=== PATIENT | male | born 1985 | race American Indian/Alaskan Native ===

== ENCOUNTER 2017-12-11 20:37 | Emergency (ER) | payer MEDICAID ==
[2017-12-11 21:23] LABS: Eosinophils # (Auto) 0.1 K/mm3 (0.0-0.4); Eosinophils % (Auto) 1.3 % (0.0-4.3); Hematocrit 41.6 % (35.5-45.6); Hemoglobin 14.1 gm/dl (11.8-15.2); Mean Corpuscular HGB Conc 34 % (32-34); Mean Corpuscular Hemoglobin 34 pg (28-32); Mean Corpuscular Volume 100 fl (84-94); Monocytes # (Auto) 0.6 K/mm3 (0.0-0.8); Monocytes % (Auto) 14.2 % (0.0-7.3); Platelet Count 301 K/mm3 (140-440); Red Blood Count 4.17 M/mm3 (3.65-5.03); Red Cell Distribution Width 12.8 % (13.2-15.2)
[2017-12-11 21:45] LABS: BUN/Creatinine Ratio 4; Blood Urea Nitrogen 4 mg/dL (9-20); Calcium 8.7 mg/dL (8.4-10.2); Hemolysis Index 8
[2017-12-12] MEDS ORDERED: ATIVAN IM PRN (00:39)
[2017-12-12] MEDS ORDERED: HALDOL IM PRN (00:39)
--- NOTE | 2017-12-12 00:40 | Emergency Department Report ---
ED General Adult HPI - General Chief complaint: Psych Stated complaint: SUICIDAL Time Seen by Provider: 12/12/17 00:21 Source: patient, family Mode of arrival: Ambulatory Limitations: Other (alcohol intoxication) - History of Present Illness Initial comments: This is a 32-year-old male whom I have evaluated the past. He has a past medical history of alcoholism and alcohol abuse. He is brought to the hospital in conjunction with his mother for evaluation of alcohol intoxication suicidality and request for detox. Patient's mother indicates the patient has been suicidal. The patient states he is not suicidal. Patient's mother indicates no access to guns or firearms. The patient cannot describe exacerbating or relieving factors. The patient can't describe exacerbating or relieving factors. Patient's mother indicates no trauma or coingestions. He was recently at an outpatient facility for detox and relapsed today. -: Gradual Consistency: constant Improves with: none Worsens with: none Associated Symptoms: other. denies: confusion, chest pain, cough, diaphoresis, fever/chills, headaches, loss of appetite, malaise, nausea/vomiting, rash, seizure, shortness of breath, syncope, weakness - Related Data Previous Rx's Medication Instructions Recorded Last Taken Type Hydrochlorothiazide [Hctz] 12.5 mg PO QDAY #30 capsule 08/13/15 Unknown Rx Ibuprofen [Motrin] 600 mg PO Q8H PRN #30 tablet 08/13/15 Unknown Rx amLODIPine [Norvasc] 5 mg PO DAILY #30 tab 08/13/15 Unknown Rx traMADol [Ultram 50 MG tab] 50 mg PO Q6HR PRN #20 tablet 08/13/15 Unknown Rx Allergies Allergy/AdvReac Type Severity Reaction Status Date / Time No Known Allergies Allergy Verified 04/10/14 16:28 ED Review of Systems ROS: Stated complaint: SUICIDAL Other details as noted in HPI Psychiatric: suicidal thoughts ED Past Medical Hx - Past Medical History Previous Medical History?: Yes Hx Hypertension: Yes Hx Psychiatric Treatment: Yes Additional medical history: daily beer/liquor drinker - Surgical History Past Surgical History?: No - Social History Smoking Status: Never Smoker Substance Use Type: Alcohol - Medications Home Medications: Home Medications Medication Instructions Recorded Confirmed Last Taken Type Hydrochlorothiazide [Hctz] 12.5 mg PO QDAY #30 capsule 08/13/15 Unknown Rx Ibuprofen [Motrin] 600 mg PO Q8H PRN #30 tablet 08/13/15 Unknown Rx amLODIPine [Norvasc] 5 mg PO DAILY #30 tab 08/13/15 Unknown Rx traMADol [Ultram 50 MG tab] 50 mg PO Q6HR PRN #20 tablet 08/13/15 Unknown Rx ED Physical Exam - General Limitations: No Limitations, Other (patient is intoxicated) General appearance: appears intoxicated - Head Head exam: Present: atraumatic, normocephalic - Eye Eye exam: Present: normal appearance, EOMI. Absent: nystagmus - ENT ENT exam: Present: normal exam, normal orophraynx, mucous membranes moist, normal external ear exam - Neck Neck exam: Present: normal inspection, full ROM - Respiratory Respiratory exam: Present: normal lung sounds bilaterally. Absent: respiratory distress - Cardiovascular Cardiovascular Exam: Present: regular rate, normal rhythm, normal heart sounds. Absent: bradycardia, tachycardia, irregular rhythm, systolic murmur, diastolic murmur, rubs, gallop - GI/Abdominal GI/Abdominal exam: Present: soft, normal bowel sounds. Absent: distended, tenderness, guarding, rebound, rigid - Rectal Rectal exam: Present: deferred - Extremities Exam Extremities exam: Present: normal inspection, full ROM - Back Exam Back exam: Present: normal inspection, full ROM. Absent: tenderness, CVA tenderness (R), paraspinal tenderness, vertebral tenderness - Neurological Exam Neurological exam: Present: alert, CN II-XII intact, normal gait, other ( Extraocular movements intact. Tongue midline. No facial droop. Facial sensation intact to light touch in the V1, V2, V3 distribution bilaterally. 5 and 5 strength in 4 extremities.. Sensation is intact to light touch in 4 extremities.). Absent: motor sensory deficit - Psychiatric Psychiatric exam: Present: agitated. Absent: homicidal ideation - Skin Skin exam: Present: warm, dry, intact, normal color. Absent: rash ED Course Vital Signs 12/11/17 21:04 Temperature 98.1 F Pulse Rate 86 Respiratory 16 Rate Blood Pressure 105/57 O2 Sat by Pulse 96 Oximetry ED Medical Decision Making - Lab Data Result diagrams: 12/11/17 21:12 12/11/17 21:12 Vital Signs 12/11/17 21:04 Temperature 98.1 F Pulse Rate 86 Respiratory 16 Rate Blood Pressure 105/57 O2 Sat by Pulse 96 Oximetry Lab Results 12/11/17 12/11/17 12/11/17 Range/Units 21:12 21:12 21:12 WBC (4.5-11.0) K/mm3 RBC (3.65-5.03) M/mm3 Hgb (11.8-15.2) gm/dl Hct (35.5-45.6) % MCV (84-94) fl MCH (28-32) pg MCHC (32-34) % RDW (13.2-15.2) % Plt Count (140-440) K/mm3 Lymph % (Auto) (13.4-35.0) % [place] % (Auto) (0.0-7.3) % Eos % (Auto) (0.0-4.3) % Baso % (Auto) (0.0-1.8) % Lymph # (1.2-5.4) K/mm3 [place] # (0.0-0.8) K/mm3 Eos # (0.0-0.4) K/mm3 Baso # (0.0-0.1) K/mm3 Seg Neutrophils % (40.0-70.0) % Seg Neutrophils # (1.8-7.7) K/mm3 Sodium 144 (137-145) mmol/L Potassium 4.2 (3.6-5.0) mmol/L Chloride 105.2 (98-107) mmol/L Carbon Dioxide 29 (22-30) mmol/L Anion Gap 14 mmol/L BUN 4 L (9-20) mg/dL Creatinine 0.9 (0.8-1.5) mg/dL Estimated GFR > 60 ml/min BUN/Creatinine Ratio 4 % Glucose 95 (75-100) mg/dL Calcium 8.7 (8.4-10.2) mg/dL Salicylates < 0.3 L (2.8-20.0) mg/dL Acetaminophen < 5.0 L (10.0-30.0) ug/mL Plasma/Serum Alcohol (0-0.07) % 12/11/17 12/11/17 Range/Units 21:12 21:12 WBC 4.3 L (4.5-11.0) K/mm3 RBC 4.17 (3.65-5.03) M/mm3 Hgb 14.1 (11.8-15.2) gm/dl Hct 41.6 (35.5-45.6) % MCV 100 H (84-94) fl MCH 34 H (28-32) pg MCHC 34 (32-34) % RDW 12.8 L (13.2-15.2) % Plt Count 301 (140-440) K/mm3 Lymph % (Auto) 47.0 H (13.4-35.0) % [place] % (Auto) 14.2 H (0.0-7.3) % Eos % (Auto) 1.3 (0.0-4.3) % Baso % (Auto) 1.0 (0.0-1.8) % Lymph # 2.0 (1.2-5.4) K/mm3 [place] # 0.6 (0.0-0.8) K/mm3 Eos # 0.1 (0.0-0.4) K/mm3 Baso # 0.0 (0.0-0.1) K/mm3 Seg Neutrophils % 36.5 L (40.0-70.0) % Seg Neutrophils # 1.6 L (1.8-7.7) K/mm3 Sodium (137-145) mmol/L Potassium (3.6-5.0) mmol/L Chloride (98-107) mmol/L Carbon Dioxide (22-30) mmol/L Anion Gap mmol/L BUN (9-20) mg/dL Creatinine (0.8-1.5) mg/dL Estimated GFR ml/min BUN/Creatinine Ratio % Glucose (75-100) mg/dL Calcium (8.4-10.2) mg/dL Salicylates (2.8-20.0) mg/dL Acetaminophen (10.0-30.0) ug/mL Plasma/Serum Alcohol 0.43 H (0-0.07) % - Medical Decision Making Differential diagnosis, including but not limited to: Alcohol intoxication, mood disorder, suicidality, medical clearance for psychiatric placement Assessment and plan: 32-year-old male with alcohol intoxication and resolved suicidality. He is afebrile with reassuring vital signs and an unremarkable physical examination. He is placed on a 1013 given his report of suicidality, his mother being concerns that he represents a danger to himself, and his clear inability to care for himself at this point in time. There is no history of trauma. The patient may have his 1013 rescinded if he becomes sober, and indicates that he is not homicidal or suicidal. At this point in time, there does not appear to be an immediate medical contraindication to psychiatric admission, evaluation and consultation. Critical care attestation.: If time is entered above; I have spent that time in minutes in the direct care of this critically ill patient, excluding procedure time. ED Disposition Clinical Impression: Medical clearance for psychiatric admission, Alcohol intoxication Disposition: DC/TX-65 PSY HOSP/PSY UNIT Is pt being admited?: No Does the pt Need Aspirin: No Condition: Stable Referrals: [facility] ROGERS [Other] - 3-5 Days
[2017-12-12 02:19] LABS: Bilirubin,Urine NEG (Negative); Blood,Urine NEG (Negative); Color,Urine Straw (Yellow); Mucus,Urine FEW /HPF; Protein,Urine <15 mg/dL mg/dL (Negative); Urobilinogen,Urine < 2.0 mg/dL (<2.0); WBC,Urine < 1.0 /HPF (0.0-6.0)
[2017-12-12 02:54] LABS: Amphetamine Screen,Urine PRESUMPTIVE NEGATIVE; Benzodiazepines Screen,Urine PRESUMPTIVE NEGATIVE; Cannabinoid Screen,Urine PRESUMPTIVE NEGATIVE; Cocaine Screen,Urine PRESUMPTIVE NEGATIVE; Methadone Screen,Urine PRESUMPTIVE NEGATIVE; Opiate Screen,Urine PRESUMPTIVE NEGATIVE
--- NOTE | 2017-12-12 13:55 | Consultation ---
History of Present Illness - Reason for Consult Consult date: 12/12/17 Reason for consult: Mental Health Evaluation Requesting physician: EMMA HALL - Chief Complaint Chief complaint: "Everything came to a head' - History of Present Psychiatric Illness 32 y.o. AA male presenting to [facility] for alcohol abuse and SI's. Today the patient is anxious, but cooperative during the assessment. He stated having life stressors (relationship and family issues) for a few months. He stated drinking alcohol since he was 13 yrs old because he enjoys it. He stated he completed a 7 day detox program for alcohol at [facility] on Friday of this week. He stated that he found out that his girlfriend was "cheating" and his family "do not do right by him." He stated that his family put him in a bad "head space." He stated that he was overwhelmed since his release from [facility], so he decided to get "drunk." He stated that he was feeling "down" before he started drinking. Per the ER note, the patient's mother stated that he was suicidal on admission. He stated that he would like to return to [facility] if possible. He denies SI/HI's and AVH's. He denies erratic sleep and a poor appetite. He denies any manic episodes in the past. He denies recreational drug use. Medications and Allergies Allergies Allergy/AdvReac Type Severity Reaction Status Date / Time No Known Allergies Allergy Verified 04/10/14 16:28 Home Medications Medication Instructions Recorded Confirmed Last Taken Type Hydrochlorothiazide [Hctz] 12.5 mg PO QDAY #30 capsule 08/13/15 Unknown Rx Ibuprofen [Motrin] 600 mg PO Q8H PRN #30 tablet 08/13/15 Unknown Rx amLODIPine [Norvasc] 5 mg PO DAILY #30 tab 08/13/15 Unknown Rx traMADol [Ultram 50 MG tab] 50 mg PO Q6HR PRN #20 tablet 08/13/15 Unknown Rx Active Meds: Active Medications Haloperidol Lactate (Haldol) 5 mg IM Q6HR PRN PRN Reason: Agitation Lorazepam (Ativan) 2 mg IM Q4HR PRN PRN Reason: Agitation Past psychiatric history - Past Medical History Past Medical History: No medical history Past Surgical History: No surgical history - past Psychiatric treatment and history psychiatric treatment history: Hx of alcohol abuse. Denies a fam psy hx. Mental Status Exam - Vital signs Last Vital Signs Temp 97.9 F 12/12/17 11:16 Pulse 100 H 12/12/17 11:16 Resp 18 12/12/17 11:16 BP 107/78 12/12/17 11:16 Pulse Ox 98 12/12/17 00:39 - Exam Narrative exam: MSE: Appearance: cooperative Behavior: regular eye contact Speech: regular rate and tone Mood: anxious Affect: congruent to mood Thought Process: circumstantial Thought Content: denies SI/HI's and AVH's Motor Activity: sitting up in bed Cognition: A/O x3 Insight: fair Judgment: variable Results Result Diagrams: 12/11/17 21:12 12/11/17 21:12 Abnormal lab results 12/11/17 12/11/17 12/11/17 Range/Units 21:12 21:12 21:12 WBC (4.5-11.0) K/mm3 MCV (84-94) fl MCH (28-32) pg RDW (13.2-15.2) % Lymph % (Auto) (13.4-35.0) % [place] % (Auto) (0.0-7.3) % Seg Neutrophils % (40.0-70.0) % Seg Neutrophils # (1.8-7.7) K/mm3 BUN 4 L (9-20) mg/dL Salicylates < 0.3 L (2.8-20.0) mg/dL Acetaminophen < 5.0 L (10.0-30.0) ug/mL Plasma/Serum Alcohol (0-0.07) % 12/11/17 12/11/17 12/12/17 Range/Units 21:12 21:12 09:07 WBC 4.3 L (4.5-11.0) K/mm3 MCV 100 H (84-94) fl MCH 34 H (28-32) pg RDW 12.8 L (13.2-15.2) % Lymph % (Auto) 47.0 H (13.4-35.0) % [place] % (Auto) 14.2 H (0.0-7.3) % Seg Neutrophils % 36.5 L (40.0-70.0) % Seg Neutrophils # 1.6 L (1.8-7.7) K/mm3 BUN (9-20) mg/dL Salicylates (2.8-20.0) mg/dL Acetaminophen (10.0-30.0) ug/mL Plasma/Serum Alcohol 0.43 H 0.27 H (0-0.07) % All other labs normal. Assessment and Plan Assessment and plan: Impression: MDD, Single Episode. Alcohol Use DO. Alcohol Intoxication. Today the patient is anxious, but cooperative during the assessment. No withdrawals noted (etoh) DDx: R/O Bipolar DO, R/O Alcohol Induced Mood DO Recommendation/Plan: Continue 1013 and gather collateral to determine proper dispo. Start Zoloft 50 mg PO daily for depression. Discussed possible suicidality/medication induced shayne with patient reference Zoloft. If withdrawals (etoh) become present, initiate CIWA.
[2017-12-12] MEDS ORDERED: ZOLOFT PO SCH (15:00)
[2017-12-12] MEDS ORDERED: LIBRIUM PO PRN (16:39)
[2017-12-12] MEDS ORDERED: ATIVAN IV PRN (16:39)
[2017-12-12 21:55] VITALS: BP 138/93
== END 2017-12-12 21:55 ==
LOC: ED 20:37 → EEVIPCON 20:37 → ED 12-12 21:55
DX: F10.120 Alcohol abuse with intoxication, uncomplicated (principal); I10 Essential (primary) hypertension
CPT/HCPCS: 36415; 80048; 80307; 81001; 85025; 99284; G0480; 80320

== ENCOUNTER 2019-07-21 13:09 | Emergency (ER) | payer SELFPAY ==
--- NOTE | 2019-07-21 13:16 | Emergency Department Report ---
Blank Doc - Documentation Documentation: 33-year-old male that presents with medical clearance for ETOH abuse. Denies any SI/HI. This initial assessment/diagnostic orders/clinical plan/treatment(s) is/are subject to change based on patient's health status, clinical progression and re- assessment by fellow clinical providers in the ED. Further treatment and workup at subsequent clinical providers discretion. Patient/guardians urged not to elope from the ED as their condition may be serious if not clinically assessed and managed. Initial orders include: 1- Patient sent to MAIN ED for further evaluation and treatment 2- labs 3- UA
[2019-07-21] MEDS ORDERED: LORazepam 2 MG/ML VIAL IV PRN ×2 (13:38)
[2019-07-21 13:54] VITALS: BP 126/84
[2019-07-21 14:00] LABS: Hematocrit 50.1 % (35.5-45.6); Hemoglobin 17.2 gm/dl (11.8-15.2); Mean Corpuscular HGB Conc 34 % (32-34); Mean Corpuscular Volume 96 fl (84-94); Platelet Count 348 K/mm3 (140-440); Red Blood Count 5.19 M/mm3 (3.65-5.03); Red Cell Distribution Width 13.6 % (13.2-15.2)
--- NOTE | 2019-07-21 14:02 | Emergency Department Report ---
ED Medical Clearance HPI - General Chief complaint: Medical Clearance Stated complaint: MED CLEARANCE Time Seen by Provider: 07/21/19 13:15 Source: patient, family Mode of arrival: Ambulatory - History of Present Illness Initial comments: 33 yo AA male who comes to ER requesting medical clearance for admit to [facility] for etoh detox. He has been through this 9 times. Last drink this AM. No hx sz. PMH htn rx norvasc psh none denies drugs or cig use no hi no si no a/v hallucinations cooperative Complaint: medical clearance request Place: home Alledged Intoxication: Yes Traumatic Symptoms: denies traumatic injury Treatments Prior to Arrival: none Home medications: Previous Rx's Medication Instructions Recorded Last Taken Type amLODIPine [Norvasc] 5 mg PO DAILY #30 tab 08/13/15 Unknown Rx Allergies/Adverse reactions: Allergies Allergy/AdvReac Type Severity Reaction Status Date / Time No Known Allergies Allergy Verified 04/10/14 16:28 ED Review of Systems ROS: Stated complaint: MED CLEARANCE Other details as noted in HPI Comment: All other systems reviewed and negative ED Past Medical Hx - Past Medical History Previous Medical History?: Yes Hx Hypertension: Yes Hx Psychiatric Treatment: Yes Additional medical history: daily beer/liquor drinker - Surgical History Past Surgical History?: No - Family History Family history: no significant - Social History Smoking Status: Never Smoker Substance Use Type: Alcohol - Medications Home Medications: Home Medications Medication Instructions Recorded Confirmed Last Taken Type amLODIPine [Norvasc] 5 mg PO DAILY #30 tab 08/13/15 Unknown Rx ED Physical Exam - General Limitations: No Limitations General appearance: alert, in no apparent distress - Head Head exam: Present: atraumatic, normocephalic - Eye Eye exam: Present: normal appearance - ENT ENT exam: Present: mucous membranes moist - Neck Neck exam: Present: normal inspection - Respiratory Respiratory exam: Present: normal lung sounds bilaterally. Absent: respiratory distress - Cardiovascular Cardiovascular Exam: Present: regular rate, normal rhythm. Absent: systolic murmur, diastolic murmur, rubs, gallop - GI/Abdominal GI/Abdominal exam: Present: soft, normal bowel sounds - Rectal Rectal exam: Present: deferred - Extremities Exam Extremities exam: Present: normal inspection - Back Exam Back exam: Present: normal inspection - Neurological Exam Neurological exam: Present: alert, oriented X3 - Psychiatric Psychiatric exam: Present: normal affect, normal mood, anxious - Skin Skin exam: Present: warm, dry, intact, normal color. Absent: rash ED Course Vital Signs 07/21/19 07/21/19 07/21/19 13:26 13:53 13:54 Temperature 98 F Pulse Rate 83 115 H Respiratory 20 16 Rate Blood Pressure 140/99 126/84 [Right] O2 Sat by Pulse 100 98 98 Oximetry ED Medical Decision Making - Lab Data Result diagrams: 07/21/19 13:25 07/21/19 13:25 - EKG Data EKG shows normal: sinus rhythm Rate: tachycardia - EKG Data When compared to previous EKG there are: no significant change Interpretation: no acute changes - Radiology Data Radiology results: report reviewed, image reviewed - Medical Decision Making Labs 07/21/19 07/21/19 07/21/19 13:25 13:25 13:25 WBC 6.3 RBC 5.19 H Hgb 17.2 H Hct 50.1 H MCV 96 H MCH 33 H MCHC 34 RDW 13.6 Plt Count 348 Sodium 147 H Potassium 3.9 Chloride 104.4 Carbon Dioxide 26 Anion Gap 21 BUN 9 Creatinine 0.8 Estimated GFR > 60 BUN/Creatinine Ratio 11 Glucose 64 L Calcium 9.7 Total Bilirubin 0.30 AST 32 ALT 20 Alkaline Phosphatase 86 Total Protein 9.2 H Albumin 5.0 Albumin/Globulin Ratio 1.2 Urine Color Urine Turbidity Urine pH Ur Specific [place] Urine Protein Urine Glucose (UA) Urine Ketones Urine Blood Urine Nitrite Urine Bilirubin Urine Urobilinogen Ur Leukocyte Esterase Urine WBC (Auto) Urine RBC (Auto) Urine Mucus Salicylates < 0.3 L Urine Opiates Screen Urine Methadone Screen Acetaminophen Ur Phencyclidine Scrn Ur Amphetamines Screen U Benzodiazepines Scrn Urine Cocaine Screen U Marijuana (THC) Screen Plasma/Serum Alcohol 07/21/19 07/21/19 07/21/19 13:25 13:25 Unknown WBC RBC Hgb Hct MCV MCH MCHC RDW Plt Count Sodium Potassium Chloride Carbon Dioxide Anion Gap BUN Creatinine Estimated GFR BUN/Creatinine Ratio Glucose Calcium Total Bilirubin AST ALT Alkaline Phosphatase Total Protein Albumin Albumin/Globulin Ratio Urine Color Yellow Urine Turbidity Clear Urine pH 5.0 Ur Specific [place] 1.013 Urine Protein <15 mg/dl Urine Glucose (UA) Neg Urine Ketones Tr Urine Blood Neg Urine Nitrite Neg Urine Bilirubin Neg Urine Urobilinogen < 2.0 Ur Leukocyte Esterase Neg Urine WBC (Auto) 1.0 Urine RBC (Auto) 4.0 Urine Mucus Few Salicylates Urine Opiates Screen Urine Methadone Screen Acetaminophen < 5.0 L Ur Phencyclidine Scrn Ur Amphetamines Screen U Benzodiazepines Scrn Urine Cocaine Screen U Marijuana (THC) Screen Plasma/Serum Alcohol 0.26 H 07/21/19 Unknown WBC RBC Hgb Hct MCV MCH MCHC RDW Plt Count Sodium Potassium Chloride Carbon Dioxide Anion Gap BUN Creatinine Estimated GFR BUN/Creatinine Ratio Glucose Calcium Total Bilirubin AST ALT Alkaline Phosphatase Total Protein Albumin Albumin/Globulin Ratio Urine Color Urine Turbidity Urine pH Ur Specific [place] Urine Protein Urine Glucose (UA) Urine Ketones Urine Blood Urine Nitrite Urine Bilirubin Urine Urobilinogen Ur Leukocyte Esterase Urine WBC (Auto) Urine RBC (Auto) Urine Mucus Salicylates Urine Opiates Screen Presumptive negative Urine Methadone Screen Presumptive negative Acetaminophen Ur Phencyclidine Scrn Presumptive negative Ur Amphetamines Screen Presumptive negative U Benzodiazepines Scrn Presumptive negative Urine Cocaine Screen Presumptive negative U Marijuana (THC) Screen Presumptive negative Plasma/Serum Alcohol Vital Signs 07/21/19 07/21/19 07/21/19 13:26 13:53 13:54 Temperature 98 F Pulse Rate 83 115 H Respiratory 20 16 Rate Blood Pressure 140/99 126/84 [Right] O2 Sat by Pulse 100 98 98 Oximetry cooperative labs noted banana bag in ER CIWA in ER- ativan PRN medically cleared for etoh detox at [facility]. ambulatory, taking po in ER - Differential Diagnosis med clearance for [facility] ED Disposition Clinical Impression: Medical clearance for psychiatric admission, Alcohol intoxication, Alcoholic Disposition: DC/TX-65 PSY HOSP/PSY UNIT Is pt being admited?: No Does the pt Need Aspirin: No Condition: Stable Time of Disposition: 14:50
[2019-07-21 14:24] LABS: Alanine Aminotransferase 20 units/L (7-56); BUN/Creatinine Ratio 11; Blood Urea Nitrogen 9 mg/dL (9-20); Calcium 9.7 mg/dL (8.4-10.2); Hemolysis Index 13
[2019-07-21 14:35] LABS: Bilirubin,Urine NEG (Negative); Blood,Urine NEG (Negative); Color,Urine Yellow (Yellow); Mucus,Urine FEW /HPF; Protein,Urine <15 mg/dL mg/dL (Negative); Urobilinogen,Urine < 2.0 mg/dL (<2.0)
[2019-07-21] MEDS ORDERED: THIAMINE 100 MG, FOLIC ACID 1 MG, MULTIPLE VITAMIN INJ, ADULT 10 ML in SODIUM CHLORIDE ... IV ONE (14:36)
[2019-07-21 14:48] LABS: Amphetamine Screen,Urine PRESUMPTIVE NEGATIVE; Benzodiazepines Screen,Urine PRESUMPTIVE NEGATIVE; Cannabinoid Screen,Urine PRESUMPTIVE NEGATIVE; Cocaine Screen,Urine PRESUMPTIVE NEGATIVE; Methadone Screen,Urine PRESUMPTIVE NEGATIVE; Opiate Screen,Urine PRESUMPTIVE NEGATIVE
[2019-07-21 14:50] LABS: Eosinophils % (Manual) 0 % (0.0-4.3); Platelet Estimate Consistent w Auto; RBC Morphology Normal; Total Cells Counted 100
== END 2019-07-21 19:22 ==
LOC: ED 13:09
DX: F10.129 Alcohol abuse with intoxication, unspecified (principal); I10 Essential (primary) hypertension; Z79.899 Other long term (current) drug therapy
CPT/HCPCS: 36415; 80053; 80307; 81001; 85007; 85025; 93005; 93010; 99282; J3411; J7030; 80320; G0480

== ENCOUNTER 2019-09-30 12:09 | Emergency (ER) | payer SELFPAY ==
[2019-09-30] MEDS ORDERED: SODIUM CHLORIDE 0.9% 1000 ML 1,000 ML IV ONE (12:31)
--- NOTE | 2019-09-30 12:36 | Emergency Department Report ---
<TI[place]AR [place] - Last Filed: 09/30/19 16:02> ED Altered Mental Status HPI - General Chief Complaint: Altered Mental Status Stated Complaint: UNRESPONSIVE Time Seen by Provider: 09/30/19 12:28 Source: patient Mode of arrival: Ambulatory Limitations: No Limitations - History of Present Illness Initial Comments: Patient is 33 years old male, unknown to me, unknown past medical history. Patient brought to the emergency room via EMS from a local restaurant after patient was found unresponsive. EMS gave Narcan and patient responded by becoming responding to painful stimuli. In the emergency room patient is obtunded and only responded to painful stimuli. Patient vital signs stable with oxygen saturation of 97% on room air. MD Complaint: altered mental status, decreased responsiveness -: This morning Severity: moderate Context: alcohol abuse, drug abuse - Related Data Previous Rx's Medication Instructions Recorded Last Taken Type amLODIPine [Norvasc] 5 mg PO DAILY #30 tab 08/13/15 Unknown Rx Multivitamin with Folic Acid [[facility] 400 mcg PO QDAY #30 tablet 10/01/19 Unknown Rx One Daily Essential Tablet] chlordiazePOXIDE [Librium] 25 mg PO Q6H PRN #25 capsule 10/01/19 Unknown Rx Allergies Allergy/AdvReac Type Severity Reaction Status Date / Time No Known Allergies Allergy Verified 04/10/14 16:28 ED Review of Systems Comment: Unobtainable due to pts medical conditions ED Past Medical Hx - Past Medical History Previous Medical History?: Yes Hx Hypertension: Yes Hx Psychiatric Treatment: Yes Additional medical history: daily beer/liquor drinker - Surgical History Past Surgical History?: No - Social History Smoking Status: Never Smoker Substance Use Type: None - Medications Home Medications: Home Medications Medication Instructions Recorded Confirmed Last Taken Type amLODIPine [Norvasc] 5 mg PO DAILY #30 tab 08/13/15 Unknown Rx Multivitamin with Folic Acid [[facility] 400 mcg PO QDAY #30 tablet 10/01/19 Unknown Rx One Daily Essential Tablet] chlordiazePOXIDE [Librium] 25 mg PO Q6H PRN #25 capsule 10/01/19 Unknown Rx ED Physical Exam - General Limitations: No Limitations General appearance: appears intoxicated, obtunded - Head Head exam: Present: atraumatic, normocephalic, normal inspection - Eye Eye exam: Present: normal appearance - ENT ENT exam: Present: normal exam, normal orophraynx, mucous membranes moist - Neck Neck exam: Present: normal inspection, full ROM. Absent: tenderness, meningismus, lymphadenopathy, thyromegaly - Respiratory Respiratory exam: Present: normal lung sounds bilaterally - Cardiovascular Cardiovascular Exam: Present: tachycardia - GI/Abdominal GI/Abdominal exam: Present: soft, normal bowel sounds. Absent: distended, tenderness, guarding, rebound, rigid, organomegaly, mass, bruit, pulsatile mass, hernia - Extremities Exam Extremities exam: Present: normal inspection, full ROM, normal capillary refill. Absent: tenderness, pedal edema, joint swelling, calf tenderness - Back Exam Back exam: Present: normal inspection, full ROM. Absent: CVA tenderness (R), CVA tenderness (L), muscle spasm, paraspinal tenderness, vertebral tenderness - Neurological Exam Neurological exam: Present: altered - Skin Skin exam: Present: warm, intact, normal color - Lab Data Result diagrams: 09/30/19 12:46 09/30/19 12:46 - Medical Decision Making Patient is 33 years old male, unknown to me, unknown past medical history. Patient brought to the emergency room via EMS from a local restaurant after patient was found unresponsive. EMS gave Narcan and patient responded by becoming responding to painful stimuli. In the emergency room patient is obtunded and only responded to painful stimuli. Patient vital signs stable with oxygen saturation of 97% on room air. Patient found to have an alcohol level of 0.47. Patient started to wake up when nurse tried to do a straight cath. Patient will be observed in the ER until he is sober. ED Disposition Clinical Impression: Alcohol intoxication Disposition: DC-01 TO HOME OR SELFCARE Condition: Stable Additional Instructions: Recommend that patient discontinue consumption of alcohol. Long-term consumption of alcohol may cause addiction, disability, , paralysis, loss of quality of life. Take the multivitamins as needed and/or directed. Take the Librium medication as needed for cessation of alcohol withdrawal, tremors, and shakiness, if patient elects to discontinue alcohol consumption. We recommend the patient follow-up with a primary care doctor within the next 2 weeks. Patient may also elect to follow-up with any of the numerous local detox centers, such as [facility], if he elects to pursue alcohol detox. Please return to the emergency room right away with new, worsened or different symptoms, or symptoms not present on the initial emergency room evaluation Referrals: [facility] [Provider Group] - 3-5 Days [facility] [Provider Group] - 3-5 Days <EMMA HALL - Last Filed: 10/01/19 07:40> ED Review of Systems ROS: Stated complaint: UNRESPONSIVE Other details as noted in HPI ED Course Vital Signs 09/30/19 09/30/19 09/30/19 12:18 16:40 19:53 Temperature 97.7 F Pulse Rate 110 H 104 H 96 H Respiratory 16 16 16 Rate Blood Pressure 102/70 Blood Pressure 116/80 92/58 [Left] O2 Sat by Pulse 96 96 97 Oximetry 09/30/19 10/01/19 10/01/19 21:57 00:29 02:21 Temperature Pulse Rate 100 H 95 H 93 H Respiratory 19 17 17 Rate Blood Pressure Blood Pressure 119/83 96/57 87/51 [Left] O2 Sat by Pulse 99 96 97 Oximetry 10/01/19 03:16 Temperature Pulse Rate 93 H Respiratory 12 Rate Blood Pressure Blood Pressure 91/50 [Left] O2 Sat by Pulse 97 Oximetry - Reevaluation(s) Reevaluation #1: 10/01/19 07:38 Patient is observed in this department for approximately 20 hours. He has not experienced a clinical decompensation. He is awake, alert, oriented, clinically sober, and walking with a steady gait. He exhibits decision-making capacity at this time. He exhibits rational thought process at this time. No additional laboratory studies are indicated. He indicates he can get his mother to come by and pick him up, or take a lift or Uber to get home. 2013 is discontinued - Lab Data Result diagrams: 09/30/19 12:46 09/30/19 12:46 Lab Results 09/30/19 09/30/19 09/30/19 Range/Units 12:45 12:45 12:46 WBC 3.8 L (4.5-11.0) K/mm3 RBC 4.56 (3.65-5.03) M/mm3 Hgb 14.9 (11.8-15.2) gm/dl Hct 43.8 (35.5-45.6) % MCV 96 H (84-94) fl MCH 33 H (28-32) pg MCHC 34 (32-34) % RDW 14.9 (13.2-15.2) % Plt Count 340 (140-440) K/mm3 [place] % (Auto) Radiation / Chemistry Technician Add Manual Diff Complete Total Counted 100 Seg Neuts % (Manual) 38.0 L (40.0-70.0) % Band Neutrophils % 0 % Lymphocytes % (Manual) 45.0 H (13.4-35.0) % Reactive Lymphs % (Man) 0 % Monocytes % (Manual) 14.0 H (0.0-7.3) % Eosinophils % (Manual) 2.0 (0.0-4.3) % Basophils % (Manual) 1.0 (0.0-1.8) % Metamyelocytes % 0 % Myelocytes % 0 % Promyelocytes % 0 % Blast Cells % 0 % Nucleated RBC % Not Reportable Seg Neutrophils # Man 1.4 L (1.8-7.7) K/mm3 Band Neutrophils # 0.0 K/mm3 Lymphocytes # (Manual) 1.7 (1.2-5.4) K/mm3 Abs React Lymphs (Man) 0.0 K/mm3 Monocytes # (Manual) 0.5 (0.0-0.8) K/mm3 Eosinophils # (Manual) 0.1 (0.0-0.4) K/mm3 Basophils # (Manual) 0.0 (0.0-0.1) K/mm3 Metamyelocytes # 0.0 K/mm3 Myelocytes # 0.0 K/mm3 Promyelocytes # 0.0 K/mm3 Blast Cells # 0.0 K/mm3 WBC Morphology Not Reportable Hypersegmented Neuts Not Reportable Hyposegmented Neuts Not Reportable Hypogranular Neuts Not Reportable Smudge Cells Not Reportable Toxic Granulation Not Reportable Toxic Vacuolation Not Reportable Dohle Bodies Not Reportable Pelger-Huet Anomaly Not Reportable Johnny Rods Not Reportable Platelet Estimate Consistent w auto Clumped Platelets Not Reportable Plt Clumps, EDTA Not Reportable Large Platelets Not Reportable Giant Platelets Not Reportable Platelet Satelliting Not Reportable Plt Morphology Comment Not Reportable RBC Morphology Normal Dimorphic RBCs Not Reportable Polychromasia Not Reportable Hypochromasia Not Reportable Poikilocytosis Not Reportable Anisocytosis Not Reportable Microcytosis Not Reportable Macrocytosis Not Reportable Spherocytes Not Reportable Pappenheimer Bodies Not Reportable Sickle Cells Not Reportable Target Cells Not Reportable Tear Drop Cells Not Reportable Ovalocytes Not Reportable Helmet Cells Not Reportable [place] Bodies Not Reportable [place] Rings Not Reportable Robert Cells Not Reportable Bite Cells Not Reportable Crenated Cell Not Reportable Elliptocytes Not Reportable Acanthocytes (Spur) Not Reportable Rouleaux Not Reportable Hemoglobin C Crystals Not Reportable Schistocytes Not Reportable Malaria parasites Not Reportable Aly Bodies Not Reportable Hem Pathologist Commnt No Sodium (137-145) mmol/L Potassium (3.6-5.0) mmol/L Chloride (98-107) mmol/L Carbon Dioxide (22-30) mmol/L Anion Gap mmol/L BUN (9-20) mg/dL Creatinine (0.8-1.5) mg/dL Estimated GFR ml/min BUN/Creatinine Ratio % Glucose (75-100) mg/dL POC Glucose (70-105) Calcium (8.4-10.2) mg/dL Total Bilirubin (0.1-1.2) mg/dL Direct Bilirubin (0-0.2) mg/dL AST (5-40) units/L ALT (7-56) units/L Alkaline Phosphatase (35-129) units/L Total Protein (6.3-8.2) g/dL Albumin (3.9-5) g/dL Albumin/Globulin Ratio % Urine Color Straw (Yellow) Urine Turbidity Clear (Clear) Urine pH 5.0 (5.0-7.0) Ur Specific [place] 1.008 (1.003-1.030) Urine Protein <15 mg/dl (Negative) mg/dL Urine Glucose (UA) Neg (Negative) mg/dL Urine Ketones Neg (Negative) mg/dL Urine Blood Neg (Negative) Urine Nitrite Neg (Negative) Urine Bilirubin Neg (Negative) Urine Urobilinogen < 2.0 (<2.0) mg/dL Ur Leukocyte Esterase Neg (Negative) Urine WBC (Auto) 1.0 (0.0-6.0) /HPF Urine RBC (Auto) 3.0 (0.0-6.0) /HPF Urine Bacteria (Auto) 1+ (Negative) /HPF Hyaline Casts 1 /LPF Salicylates (2.8-20.0) mg/dL Urine Opiates Screen Presumptive negative Urine Methadone Screen Presumptive negative Acetaminophen (10.0-30.0) ug/mL Ur Barbiturates Screen Presumptive negative Ur Phencyclidine Scrn Presumptive negative Ur Amphetamines Screen Presumptive negative U Benzodiazepines Scrn Presumptive negative Urine Cocaine Screen Presumptive negative U Marijuana (THC) Screen Presumptive negative Drugs of Abuse Note Disclamer Plasma/Serum Alcohol (0-0.07) % 09/30/19 09/30/19 09/30/19 Range/Units 12:46 12:46 12:46 WBC (4.5-11.0) K/mm3 RBC (3.65-5.03) M/mm3 Hgb (11.8-15.2) gm/dl Hct (35.5-45.6) % MCV (84-94) fl MCH (28-32) pg MCHC (32-34) % RDW (13.2-15.2) % Plt Count (140-440) K/mm3 [place] % (Auto) Add Manual Diff Total Counted Seg Neuts % (Manual) (40.0-70.0) % Band Neutrophils % % Lymphocytes % (Manual) (13.4-35.0) % Reactive Lymphs % (Man) % Monocytes % (Manual) (0.0-7.3) % Eosinophils % (Manual) (0.0-4.3) % Basophils % (Manual) (0.0-1.8) % Metamyelocytes % % Myelocytes % % Promyelocytes % % Blast Cells % % Nucleated RBC % Seg Neutrophils # Man (1.8-7.7) K/mm3 Band Neutrophils # K/mm3 Lymphocytes # (Manual) (1.2-5.4) K/mm3 Abs React Lymphs (Man) K/mm3 Monocytes # (Manual) (0.0-0.8) K/mm3 Eosinophils # (Manual) (0.0-0.4) K/mm3 Basophils # (Manual) (0.0-0.1) K/mm3 Metamyelocytes # K/mm3 Myelocytes # K/mm3 Promyelocytes # K/mm3 Blast Cells # K/mm3 WBC Morphology Hypersegmented Neuts Hyposegmented Neuts Hypogranular Neuts Smudge Cells Toxic Granulation Toxic Vacuolation Dohle Bodies Pelger-Huet Anomaly Johnny Rods Platelet Estimate Clumped Platelets Plt Clumps, EDTA Large Platelets Giant Platelets Platelet Satelliting Plt Morphology Comment RBC Morphology Dimorphic RBCs Polychromasia Hypochromasia Poikilocytosis Anisocytosis Microcytosis Macrocytosis Spherocytes Pappenheimer Bodies Sickle Cells Target Cells Tear Drop Cells Ovalocytes Helmet Cells [place] Bodies [place] Rings [place] Cells Bite Cells Crenated Cell Elliptocytes Acanthocytes (Spur) Rouleaux Hemoglobin C Crystals Schistocytes Malaria parasites Aly Bodies Hem Pathologist Commnt Sodium 145 (137-145) mmol/L Potassium 3.5 L (3.6-5.0) mmol/L Chloride 103.3 (98-107) mmol/L Carbon Dioxide 20 L (22-30) mmol/L Anion Gap 25 mmol/L BUN 10 (9-20) mg/dL Creatinine 1.2 (0.8-1.5) mg/dL Estimated GFR > 60 ml/min BUN/Creatinine Ratio 8 % Glucose 62 L (75-100) mg/dL POC Glucose (70-105) Calcium 8.1 L (8.4-10.2) mg/dL Total Bilirubin 0.20 (0.1-1.2) mg/dL Direct Bilirubin < 0.2 (0-0.2) mg/dL AST 23 (5-40) units/L ALT 21 (7-56) units/L Alkaline Phosphatase 86 (35-129) units/L Total Protein 7.3 (6.3-8.2) g/dL Albumin 4.2 (3.9-5) g/dL Albumin/Globulin Ratio 1.4 % Urine Color (Yellow) Urine Turbidity (Clear) Urine pH (5.0-7.0) Ur Specific [place] (1.003-1.030) Urine Protein (Negative) mg/dL Urine Glucose (UA) (Negative) mg/dL Urine Ketones (Negative) mg/dL Urine Blood (Negative) Urine Nitrite (Negative) Urine Bilirubin (Negative) Urine Urobilinogen (<2.0) mg/dL Ur Leukocyte Esterase (Negative) Urine WBC (Auto) (0.0-6.0) /HPF Urine RBC (Auto) (0.0-6.0) /HPF Urine Bacteria (Auto) (Negative) /HPF Hyaline Casts /LPF Salicylates (2.8-20.0) mg/dL Urine Opiates Screen Urine Methadone Screen Acetaminophen (10.0-30.0) ug/mL Ur Barbiturates Screen Ur Phencyclidine Scrn Ur Amphetamines Screen U Benzodiazepines Scrn Urine Cocaine Screen U Marijuana (THC) Screen Drugs of Abuse Note Plasma/Serum Alcohol 0.47 H (0-0.07) % 09/30/19 09/30/19 09/30/19 Range/Units 12:46 12:46 12:56 WBC (4.5-11.0) K/mm3 RBC (3.65-5.03) M/mm3 Hgb (11.8-15.2) gm/dl Hct (35.5-45.6) % MCV (84-94) fl MCH (28-32) pg MCHC (32-34) % RDW (13.2-15.2) % Plt Count (140-440) K/mm3 [place] % (Auto) Add Manual Diff Total Counted Seg Neuts % (Manual) (40.0-70.0) % Band Neutrophils % % Lymphocytes % (Manual) (13.4-35.0) % Reactive Lymphs % (Man) % Monocytes % (Manual) (0.0-7.3) % Eosinophils % (Manual) (0.0-4.3) % Basophils % (Manual) (0.0-1.8) % Metamyelocytes % % Myelocytes % % Promyelocytes % % Blast Cells % % Nucleated RBC % Seg Neutrophils # Man (1.8-7.7) K/mm3 Band Neutrophils # K/mm3 Lymphocytes # (Manual) (1.2-5.4) K/mm3 Abs React Lymphs (Man) K/mm3 Monocytes # (Manual) (0.0-0.8) K/mm3 Eosinophils # (Manual) (0.0-0.4) K/mm3 Basophils # (Manual) (0.0-0.1) K/mm3 Metamyelocytes # K/mm3 Myelocytes # K/mm3 Promyelocytes # K/mm3 Blast Cells # K/mm3 WBC Morphology Hypersegmented Neuts Hyposegmented Neuts Hypogranular Neuts Smudge Cells Toxic Granulation Toxic Vacuolation Dohle Bodies Pelger-Huet Anomaly Johnny Rods Platelet Estimate Clumped Platelets Plt Clumps, EDTA Large Platelets Giant Platelets Platelet Satelliting Plt Morphology Comment RBC Morphology Dimorphic RBCs Polychromasia Hypochromasia Poikilocytosis Anisocytosis Microcytosis Macrocytosis Spherocytes Pappenheimer Bodies Sickle Cells Target Cells Tear Drop Cells Ovalocytes Helmet Cells [place] Bodies [place] Rings [place] Cells Bite Cells Crenated Cell Elliptocytes Acanthocytes (Spur) Rouleaux Hemoglobin C Crystals Schistocytes Malaria parasites Aly Bodies Hem Pathologist Commnt Sodium (137-145) mmol/L Potassium (3.6-5.0) mmol/L Chloride (98-107) mmol/L Carbon Dioxide (22-30) mmol/L Anion Gap mmol/L BUN (9-20) mg/dL Creatinine (0.8-1.5) mg/dL Estimated GFR ml/min BUN/Creatinine Ratio % Glucose (75-100) mg/dL POC Glucose 84 (70-105) Calcium (8.4-10.2) mg/dL Total Bilirubin (0.1-1.2) mg/dL Direct Bilirubin (0-0.2) mg/dL AST (5-40) units/L ALT (7-56) units/L Alkaline Phosphatase (35-129) units/L Total Protein (6.3-8.2) g/dL Albumin (3.9-5) g/dL Albumin/Globulin Ratio % Urine Color (Yellow) Urine Turbidity (Clear) Urine pH (5.0-7.0) Ur Specific [place] (1.003-1.030) Urine Protein (Negative) mg/dL Urine Glucose (UA) (Negative) mg/dL Urine Ketones (Negative) mg/dL Urine Blood (Negative) Urine Nitrite (Negative) Urine Bilirubin (Negative) Urine Urobilinogen (<2.0) mg/dL Ur Leukocyte Esterase (Negative) Urine WBC (Auto) (0.0-6.0) /HPF Urine RBC (Auto) (0.0-6.0) /HPF Urine Bacteria (Auto) (Negative) /HPF Hyaline Casts /LPF Salicylates < 0.3 L (2.8-20.0) mg/dL Urine Opiates Screen Urine Methadone Screen Acetaminophen < 5.0 L (10.0-30.0) ug/mL Ur Barbiturates Screen Ur Phencyclidine Scrn Ur Amphetamines Screen U Benzodiazepines Scrn Urine Cocaine Screen U Marijuana (THC) Screen Drugs of Abuse Note Plasma/Serum Alcohol (0-0.07) % 02/27/20 Range/Units 21:33 WBC (4.5-11.0) K/mm3 RBC (3.65-5.03) M/mm3 Hgb (11.8-15.2) gm/dl Hct (35.5-45.6) % MCV (84-94) fl MCH (28-32) pg MCHC (32-34) % RDW (13.2-15.2) % Plt Count (140-440) K/mm3 [place] % (Auto) Add Manual Diff Total Counted Seg Neuts % (Manual) (40.0-70.0) % Band Neutrophils % % Lymphocytes % (Manual) (13.4-35.0) % Reactive Lymphs % (Man) % Monocytes % (Manual) (0.0-7.3) % Eosinophils % (Manual) (0.0-4.3) % Basophils % (Manual) (0.0-1.8) % Metamyelocytes % % Myelocytes % % Promyelocytes % % Blast Cells % % Nucleated RBC % Seg Neutrophils # Man (1.8-7.7) K/mm3 Band Neutrophils # K/mm3 Lymphocytes # (Manual) (1.2-5.4) K/mm3 Abs React Lymphs (Man) K/mm3 Monocytes # (Manual) (0.0-0.8) K/mm3 Eosinophils # (Manual) (0.0-0.4) K/mm3 Basophils # (Manual) (0.0-0.1) K/mm3 Metamyelocytes # K/mm3 Myelocytes # K/mm3 Promyelocytes # K/mm3 Blast Cells # K/mm3 WBC Morphology Hypersegmented Neuts Hyposegmented Neuts Hypogranular Neuts Smudge Cells Toxic Granulation Toxic Vacuolation Dohle Bodies Pelger-Huet Anomaly Johnny Rods Platelet Estimate Clumped Platelets Plt Clumps, EDTA Large Platelets Giant Platelets Platelet Satelliting Plt Morphology Comment RBC Morphology Dimorphic RBCs Polychromasia Hypochromasia Poikilocytosis Anisocytosis Microcytosis Macrocytosis Spherocytes Pappenheimer Bodies Sickle Cells Target Cells Tear Drop Cells Ovalocytes Helmet Cells [place] Bodies [place] Rings [place] Cells Bite Cells Crenated Cell Elliptocytes Acanthocytes (Spur) Rouleaux Hemoglobin C Crystals Schistocytes Malaria parasites Aly Bodies Hem Pathologist Commnt Sodium (137-145) mmol/L Potassium (3.6-5.0) mmol/L Chloride (98-107) mmol/L Carbon Dioxide (22-30) mmol/L Anion Gap mmol/L BUN (9-20) mg/dL Creatinine (0.8-1.5) mg/dL Estimated GFR ml/min BUN/Creatinine Ratio % Glucose (75-100) mg/dL POC Glucose (70-105) Calcium (8.4-10.2) mg/dL Total Bilirubin (0.1-1.2) mg/dL Direct Bilirubin (0-0.2) mg/dL AST (5-40) units/L ALT (7-56) units/L Alkaline Phosphatase (35-129) units/L Total Protein (6.3-8.2) g/dL Albumin (3.9-5) g/dL Albumin/Globulin Ratio % Urine Color (Yellow) Urine Turbidity (Clear) Urine pH (5.0-7.0) Ur Specific [place] (1.003-1.030) Urine Protein (Negative) mg/dL Urine Glucose (UA) (Negative) mg/dL Urine Ketones (Negative) mg/dL Urine Blood (Negative) Urine Nitrite (Negative) Urine Bilirubin (Negative) Urine Urobilinogen (<2.0) mg/dL Ur Leukocyte Esterase (Negative) Urine WBC (Auto) (0.0-6.0) /HPF Urine RBC (Auto) (0.0-6.0) /HPF Urine Bacteria (Auto) (Negative) /HPF Hyaline Casts /LPF Salicylates (2.8-20.0) mg/dL Urine Opiates Screen Urine Methadone Screen Acetaminophen (10.0-30.0) ug/mL Ur Barbiturates Screen Ur Phencyclidine Scrn Ur Amphetamines Screen U Benzodiazepines Scrn Urine Cocaine Screen U Marijuana (THC) Screen Drugs of Abuse Note Plasma/Serum Alcohol 0.33 H (0-0.07) % Critical care attestation.: If time is entered above; I have spent that time in minutes in the direct care of this critically ill patient, excluding procedure time. ED Disposition Is pt being admited?: No Does the pt Need Aspirin: No
[2019-09-30 13:19] LABS: Bacteria,Urine 1+ /HPF (Negative); Bilirubin,Urine NEG (Negative); Blood,Urine NEG (Negative); Color,Urine Straw (Yellow); Hyaline Casts,Urine 1 /LPF; Protein,Urine <15 mg/dL mg/dL (Negative); Urobilinogen,Urine < 2.0 mg/dL (<2.0)
[2019-09-30 13:23] LABS: Hematocrit 43.8 % (35.5-45.6); Hemoglobin 14.9 gm/dl (11.8-15.2); Mean Corpuscular HGB Conc 34 % (32-34); Mean Corpuscular Volume 96 fl (84-94); Platelet Count 340 K/mm3 (140-440); Red Blood Count 4.56 M/mm3 (3.65-5.03); Red Cell Distribution Width 14.9 % (13.2-15.2)
[2019-09-30 13:35] LABS: Amphetamine Screen,Urine PRESUMPTIVE NEGATIVE; Benzodiazepines Screen,Urine PRESUMPTIVE NEGATIVE; Cannabinoid Screen,Urine PRESUMPTIVE NEGATIVE; Cocaine Screen,Urine PRESUMPTIVE NEGATIVE; Methadone Screen,Urine PRESUMPTIVE NEGATIVE; Opiate Screen,Urine PRESUMPTIVE NEGATIVE
[2019-09-30 13:54] LABS: BUN/Creatinine Ratio 8; Blood Urea Nitrogen 10 mg/dL (9-20); Calcium 8.1 mg/dL (8.4-10.2); Hemolysis Index 3
[2019-09-30 13:58] LABS: Alanine Aminotransferase 21 units/L (7-56); Albumin 4.2 g/dL (3.9-5)
[2019-09-30 14:01] LABS: Bilirubin,Direct < 0.2 mg/dL (0-0.2)
[2019-09-30 14:39] LABS: Total Cells Counted 100
[2019-09-30 14:40] LABS: Platelet Estimate Consistent w Auto; RBC Morphology Normal
[2019-09-30] MEDS ORDERED: THIAMINE 100 MG, FOLIC ACID 1 MG, MULTIPLE VITAMIN INJ, ADULT 10 ML in SODIUM CHLORIDE ... IV ONE (15:00)
[2019-10-01 08:14] VITALS: BP 113/70
== END 2019-10-01 08:14 | disposition home or self-care (01) ==
LOC: ED 12:09
DX: F10.129 Alcohol abuse with intoxication, unspecified (principal); I10 Essential (primary) hypertension
CPT/HCPCS: 36415; 80048; 80076; 80307; 81001; 82962; 85007; 85025; 93005; 93010; 96361; 96365; 96366; 99285; J7030; 80320; G0480

== ENCOUNTER 2020-04-01 08:07 | Emergency (ER) | payer SELFPAY ==
[2020-04-01] MEDS ORDERED: LORazepam 2 MG/ML VIAL IV PRN ×3 (09:04)
--- NOTE | 2020-04-01 09:14 | Emergency Department Report ---
ED Seizure HPI - General Chief Complaint: Seizure Stated Complaint: SEIZURES Time Seen by Provider: 04/01/20 08:57 Source: patient, EMS Mode of arrival: Stretcher Limitations: No Limitations - History of Present Illness Initial Comments: Patient is 34 years old male with history of chronic alcoholism. Patient brought to the emergency room via EMS from home after patient was witnessed by his mother to have 2 seizures. Patient does not have any history of seizure before. Patient stated that he drink beer daily whenever he got money but for the last week he did not have any drink. Patient is shaking with palpitation and elevated blood pressure. Patient denied any visual hallucination. No seizure activity noticed by EMS or in the ER so far. Patient started on CIWA protocol. Patient also started on banana bag. MD Complaint: seizure, shaking -: Sudden, This morning Description of Episode: loss of consciousness, tonic-clonic movement Witnessed:: Yes Seizure History: none Place: home Possible Precipitating Event: none Associated Symptoms: denies other symptoms Treatments Prior to Arrival: none - Related Data Previous Rx's Medication Instructions Recorded Last Taken Type amLODIPine [Norvasc] 5 mg PO DAILY #30 tab 08/13/15 Unknown Rx Amlodipine Besylate [Norvasc] 5 mg PO QDAY #30 tablet 10/01/19 Unknown Rx Multivitamin with Folic Acid [[facility] 400 mcg PO QDAY #30 tablet 10/01/19 Unknown Rx One Daily Essential Tablet] chlordiazePOXIDE [Librium] 25 mg PO Q6H PRN #25 capsule 10/01/19 Unknown Rx Allergies Allergy/AdvReac Type Severity Reaction Status Date / Time No Known Allergies Allergy Verified 04/10/14 16:28 ED Review of Systems ROS: Stated complaint: SEIZURES Other details as noted in HPI Comment: All other systems reviewed and negative Constitutional: denies: chills, fever Respiratory: denies: cough, shortness of breath, SOB with exertion, SOB at rest, wheezing Cardiovascular: palpitations. denies: chest pain Gastrointestinal: denies: abdominal pain, nausea, vomiting, diarrhea, constipation, hematemesis, melena, hematochezia Musculoskeletal: denies: back pain Neurological: denies: headache, numbness, paresthesias, confusion, abnormal gait Psychiatric: anxiety. denies: depression, auditory hallucinations, visual hallucinations, homicidal thoughts, suicidal thoughts ED Past Medical Hx - Past Medical History Previous Medical History?: Yes Hx Hypertension: Yes Hx Psychiatric Treatment: Yes Additional medical history: daily beer/liquor drinker - Surgical History Past Surgical History?: No - Social History Smoking Status: Never Smoker Substance Use Type: Alcohol - Medications Home Medications: Home Medications Medication Instructions Recorded Confirmed Last Taken Type amLODIPine [Norvasc] 5 mg PO DAILY #30 tab 08/13/15 Unknown Rx Amlodipine Besylate [Norvasc] 5 mg PO QDAY #30 tablet 10/01/19 Unknown Rx Multivitamin with Folic Acid [[facility] 400 mcg PO QDAY #30 tablet 10/01/19 Unknown Rx One Daily Essential Tablet] chlordiazePOXIDE [Librium] 25 mg PO Q6H PRN #25 capsule 10/01/19 Unknown Rx ED Physical Exam - General Limitations: No Limitations General appearance: alert, in no apparent distress, anxious - Head Head exam: Present: atraumatic, normocephalic, normal inspection - Eye Eye exam: Present: normal appearance - ENT ENT exam: Present: normal exam, normal orophraynx, mucous membranes moist - Neck Neck exam: Present: normal inspection. Absent: tenderness, meningismus, lymphad enopathy, thyromegaly - Respiratory Respiratory exam: Present: normal lung sounds bilaterally. Absent: respiratory distress, wheezes, rales, rhonchi, stridor, chest wall tenderness, accessory muscle use, decreased breath sounds, prolonged expiratory - Cardiovascular Cardiovascular Exam: Present: tachycardia - GI/Abdominal GI/Abdominal exam: Present: soft, normal bowel sounds. Absent: distended, tenderness, guarding, rebound, rigid, organomegaly, mass, bruit, pulsatile mass, hernia - Extremities Exam Extremities exam: Present: normal inspection, full ROM, normal capillary refill. Absent: tenderness, pedal edema, joint swelling, calf tenderness - Back Exam Back exam: Present: normal inspection, full ROM. Absent: CVA tenderness (R), CVA tenderness (L) - Neurological Exam Neurological exam: Present: alert, oriented X3, CN II-XII intact, normal gait, reflexes normal. Absent: motor sensory deficit - Psychiatric Psychiatric exam: Present: normal mood, anxious. Absent: homicidal ideation, suicidal ideation - Skin Skin exam: Present: warm, intact, normal color ED Course Vital Signs 04/01/20 04/01/20 04/01/20 08:42 10:28 13:48 Temperature 99.0 F 98.4 F Pulse Rate 109 H 110 H Respiratory 18 18 18 Rate Blood Pressure 155/119 Blood Pressure 150/100 [Right] O2 Sat by Pulse 98 98 Oximetry ED Medical Decision Making - Lab Data Result diagrams: 04/01/20 09:08 04/01/20 09:08 - Medical Decision Making Patient is 34 years old male with history of chronic alcoholism. Patient brought to the emergency room via EMS from home after patient was witnessed by his mother to have 2 seizures. Patient does not have any history of seizure before. Patient stated that he drink beer daily whenever he got money but for the last week he did not have any drink. Patient is shaking with palpitation and elevated blood pressure. Patient denied any visual hallucination. No seizure activity noticed by EMS or in the ER so far. Patient started on CIWA protocol. Patient also started on banana bag. Labs reviewed and is unremarkable. Patient remained seizure free in the ER. CIWA score is 9 and patient received 1 mg of Ativan IV. Patient still denying any visual hallucination. Patient blood pressure improved with Ativan. Patient given prescription for Librium and also given refill for his amlodipine. Patient advised to follow-up with his primary care physician in the next 2 to 3 days and to return to the ER if he develop any new symptoms. Patient also given local resources for alcohol withdrawal facility. Critical care attestation.: If time is entered above; I have spent that time in minutes in the direct care of this critically ill patient, excluding procedure time. ED Disposition Clinical Impression: Seizure, Alcohol withdrawal, Malignant hypertension Disposition: DC-01 TO HOME OR SELFCARE Is pt being admited?: No Condition: Stable Instructions: Hypertension (ED), Alcohol Withdrawal (ED) Referrals: PRIMARY CARE, [Primary Care Provider] - 3-5 Days
[2020-04-01 09:22] LABS: Basophils # (Auto) 0.1 K/mm3 (0.0-0.1); Basophils % (Auto) 1.2 % (0.0-1.8); Eosinophils # (Auto) 0.1 K/mm3 (0.0-0.4); Eosinophils % (Auto) 1.4 % (0.0-4.3); Hematocrit 45.6 % (35.5-45.6); Hemoglobin 15.9 gm/dl (11.8-15.2); Lymphocytes # (Auto) 0.5 K/mm3 (1.2-5.4); Lymphocytes % (Auto) 11.2 % (13.4-35.0); Mean Corpuscular HGB Conc 35 % (32-34); Mean Corpuscular Volume 100 fl (84-94); Monocytes # (Auto) 0.6 K/mm3 (0.0-0.8); Monocytes % (Auto) 12.6 % (0.0-7.3); Platelet Count 269 K/mm3 (140-440); Red Blood Count 4.56 M/mm3 (3.65-5.03); Red Cell Distribution Width 13.8 % (13.2-15.2)
[2020-04-01 09:34] LABS: INR 1.04 (0.87-1.13)
[2020-04-01 09:35] LABS: Partial Thromboplastin Time 28.3 Sec. (24.2-36.6)
[2020-04-01 09:46] LABS: BUN/Creatinine Ratio 6; Blood Urea Nitrogen 5 mg/dL (9-20); Calcium 9.6 mg/dL (8.4-10.2); Hemolysis Index 18
[2020-04-01 09:48] LABS: Albumin 4.8 g/dL (3.9-5); Bilirubin,Direct 0.3 mg/dL (0-0.2)
[2020-04-01] MEDS ORDERED: THIAMINE 100 MG, FOLIC ACID 1 MG, MULTIPLE VITAMIN INJ, ADULT 10 ML in SODIUM CHLORIDE ... IV ONE (10:00)
[2020-04-01] MEDS ORDERED: LORazepam 2 MG/ML VIAL IV ONE (10:22)
[2020-04-01 13:49] VITALS: BP 150/100
== END 2020-04-01 14:22 | disposition home or self-care (01) ==
LOC: ED 08:07
DX: R56.9 Unspecified convulsions (principal); I10 Essential (primary) hypertension; F10.239 Alcohol dependence with withdrawal, unspecified
CPT/HCPCS: 36415; 80048; 80076; 83735; 85025; 85610; 85730; 93005; 96365; 96375; 99284; J2060; J3411; J7030; 80320; G0480

== ENCOUNTER 2021-01-31 22:17 | Emergency (ER) | payer SELFPAY ==
[2021-01-31] MEDS ORDERED: LORazepam 2 MG/ML VIAL IV ONE (23:05)
[2021-01-31] MEDS ORDERED: LORazepam 2 MG/ML VIAL IV PRN ×2 (23:05)
[2021-01-31] MEDS ORDERED: MAGNESIUM SULFATE 2 GM/50 ML BAG IV ONE (23:08)
--- NOTE | 2021-01-31 23:14 | Emergency Department Report ---
HPI - HPI HPI: Room 12 The patient is a 35-year-old male present with a chief complaint of visual hallucinations. Patient states he drinks beer frequently going through approximately 312 ounce beers a day. Patient states he last consumed beer (2) earlier in the morning on 02/27/2021. The patient states later the evening he began having visual hallucinations seeing things such as a bright light behind him and things becoming animated in the room. Patient states he sees rabbits hopping around in the room. Patient denies auditory hallucinations, patient denies suicidal homicidal ideation. <KEN MANUEL - Last Filed: 02/01/21 05:32> <MICHAELA STAPLES - Last Filed: 02/01/21 15:38> - General Chief Complaint: Psych Time Seen by Provider: 01/31/21 22:51 ED Past Medical Hx - Past Medical History Previous Medical History?: Yes Hx Hypertension: Yes Hx Psychiatric Treatment: Yes Additional medical history: daily beer/liquor drinker - Surgical History Past Surgical History?: No - Family History Family history: no significant - Social History Smoking Status: Never Smoker Substance Use Type: None (Denies illicit drug use), Alcohol (Frequently) <KEN MANUEL - Last Filed: 02/01/21 05:32> <MICHAELA STAPLES - Last Filed: 02/01/21 15:38> - Medications Home Medications: Home Medications Medication Instructions Recorded Confirmed Last Taken Type amLODIPine [Norvasc] 5 mg PO DAILY #30 tab 08/13/15 Unknown Rx Amlodipine Besylate [Norvasc] 5 mg PO QDAY #30 tablet 10/01/19 Unknown Rx Multivitamin with Folic Acid [[facility] 400 mcg PO QDAY #30 tablet 10/01/19 Unknown Rx One Daily Essential Tablet] chlordiazePOXIDE [Librium] 25 mg PO Q6H PRN #25 capsule 10/01/19 Unknown Rx amLODIPine [Norvasc] 5 mg PO DAILY #30 tab 04/01/20 Unknown Rx chlordiazePOXIDE [Librium] 25 mg PO Q6H #20 capsule 04/01/20 Unknown Rx chlordiazePOXIDE [Librium] 25 mg PO Q6H #20 capsule 02/01/21 Unknown Rx ED Review of Systems ROS: Stated complaint: HALLUCINATIONS/HIGH BP/SHAKING Other details as noted in HPI Constitutional: no symptoms reported Eyes: denies: eye pain ENT: denies: throat pain Respiratory: no symptoms reported Cardiovascular: denies: chest pain Endocrine: no symptoms reported Gastrointestinal: denies: nausea, vomiting Genitourinary: denies: dysuria Musculoskeletal: denies: back pain Neurological: denies: headache Psychiatric: visual hallucinations. denies: auditory hallucinations, homicidal thoughts, suicidal thoughts <MARKEN Ramirez - Last Filed: 02/01/21 05:32> ROS: Stated complaint: HALLUCINATIONS/HIGH BP/SHAKING Other details as noted in HPI <MICHAELA STAPLES - Last Filed: 02/01/21 15:38> Physical Exam - Physical Exam Vital Signs: Vital Signs 01/31/21 22:34 Temperature 99.0 F Pulse Rate 106 H Respiratory 18 Rate Blood Pressure 150/109 O2 Sat by Pulse 98 Oximetry Vital Signs 01/31/21 02/01/21 02/01/21 22:34 01:15 01:45 Temperature 99.0 F Pulse Rate 106 H 102 H 104 H Respiratory 18 17 16 Rate Blood Pressure 150/109 141/99 136/107 O2 Sat by Pulse 98 96 100 Oximetry 02/01/21 02/01/21 02/01/21 02:01 02:31 03:01 Temperature Pulse Rate 112 H 94 H 96 H Respiratory 14 17 18 Rate Blood Pressure 133/100 125/90 121/91 O2 Sat by Pulse 97 97 98 Oximetry 02/01/21 02/01/21 02/01/21 03:31 04:01 04:31 Temperature Pulse Rate 96 H 101 H 93 H Respiratory 17 12 18 Rate Blood Pressure 116/86 126/96 115/88 O2 Sat by Pulse 99 99 100 Oximetry Physical Exam: GENERAL: The patient is well-developed well-nourished male lying on chair not appearing to be in acute distress HEENT: Normocephalic. Atraumatic. Extraocular motions are intact. Patient has moist mucous membranes. No nystagmus NECK: Supple. No meningitic signs are noted. Trachea midline CHEST/LUNGS: Clear to auscultation. There is no respiratory distress noted. HEART/CARDIOVASCULAR: Regular. There is tachycardia. There is no gallop rub or murmur. ABDOMEN: Abdomen is soft, nontender. Patient has normal bowel sounds. There is no abdominal distention. SKIN: There is no rash. There is no edema. There is no diaphoresis. NEURO: The patient is awake, alert, and oriented. The patient is cooperative. The patient has no focal neurologic deficits. The patient has normal speech. Cranial nerves II through XII grossly intact. Tremulousness noted with [id number] bilaterally but no dysmetria MUSCULOSKELETAL: There is no evidence of acute injury. <KEN MANUEL - Last Filed: 02/01/21 05:32> - Physical Exam Vital Signs: Vital Signs 01/31/21 02/01/21 02/01/21 22:34 01:15 01:45 Temperature 99.0 F Pulse Rate 106 H 102 H 104 H Respiratory 18 17 16 Rate Blood Pressure 150/109 141/99 136/107 O2 Sat by Pulse 98 96 100 Oximetry 02/01/21 02/01/21 02/01/21 02:01 02:31 03:01 Temperature Pulse Rate 112 H 94 H 96 H Respiratory 14 17 18 Rate Blood Pressure 133/100 125/90 121/91 O2 Sat by Pulse 97 97 98 Oximetry 02/01/21 02/01/21 02/01/21 03:31 04:01 04:31 Temperature Pulse Rate 96 H 101 H 93 H Respiratory 17 12 18 Rate Blood Pressure 116/86 126/96 115/88 O2 Sat by Pulse 99 99 100 Oximetry 02/01/21 02/01/21 02/01/21 05:31 06:31 07:01 Temperature Pulse Rate 113 H 99 H 93 H Respiratory 17 17 15 Rate Blood Pressure 149/111 139/107 126/94 O2 Sat by Pulse 100 98 97 Oximetry 02/01/21 07:31 Temperature Pulse Rate 95 H Respiratory 19 Rate Blood Pressure 132/94 O2 Sat by Pulse 99 Oximetry <MICHAELA STAPLES - Last Filed: 02/01/21 15:38> ED Course Vital Signs 01/31/21 22:34 Temperature 99.0 F Pulse Rate 106 H Respiratory 18 Rate Blood Pressure 150/109 O2 Sat by Pulse 98 Oximetry <KEN MANUEL - Last Filed: 02/01/21 05:32> Vital Signs 01/31/21 02/01/21 02/01/21 22:34 01:15 01:45 Temperature 99.0 F Pulse Rate 106 H 102 H 104 H Respiratory 18 17 16 Rate Blood Pressure 150/109 141/99 136/107 O2 Sat by Pulse 98 96 100 Oximetry 02/01/21 02/01/21 02/01/21 02:01 02:31 03:01 Temperature Pulse Rate 112 H 94 H 96 H Respiratory 14 17 18 Rate Blood Pressure 133/100 125/90 121/91 O2 Sat by Pulse 97 97 98 Oximetry 02/01/21 02/01/21 02/01/21 03:31 04:01 04:31 Temperature Pulse Rate 96 H 101 H 93 H Respiratory 17 12 18 Rate Blood Pressure 116/86 126/96 115/88 O2 Sat by Pulse 99 99 100 Oximetry 02/01/21 02/01/21 02/01/21 05:31 06:31 07:01 Temperature Pulse Rate 113 H 99 H 93 H Respiratory 17 17 15 Rate Blood Pressure 149/111 139/107 126/94 O2 Sat by Pulse 100 98 97 Oximetry 02/01/21 07:31 Temperature Pulse Rate 95 H Respiratory 19 Rate Blood Pressure 132/94 O2 Sat by Pulse 99 Oximetry <MICHAELA STAPLES - Last Filed: 02/01/21 15:38> ED Medical Decision Making - Lab Data Result diagrams: 01/31/21 23:06 01/31/21 23:06 Laboratory Tests 01/31/21 01/31/21 01/31/21 22:56 22:56 23:06 WBC RBC Hgb Hct MCV MCH MCHC RDW Plt Count [place] % (Auto) Add Manual Diff Total Counted Seg Neuts % (Manual) Lymphocytes % (Manual) Monocytes % (Manual) Basophils % (Manual) Nucleated RBC % Seg Neutrophils # Man Band Neutrophils # Lymphocytes # (Manual) Abs React Lymphs (Man) Monocytes # (Manual) Eosinophils # (Manual) Basophils # (Manual) Metamyelocytes # Myelocytes # Promyelocytes # Blast Cells # WBC Morphology Hypersegmented Neuts Hyposegmented Neuts Hypogranular Neuts Smudge Cells Toxic Granulation Toxic Vacuolation Dohle Bodies Pelger-Huet Anomaly Johnny Rods Platelet Estimate Clumped Platelets Plt Clumps, EDTA Large Platelets Giant Platelets Platelet Satelliting Plt Morphology Comment RBC Morphology Dimorphic RBCs Polychromasia Hypochromasia Poikilocytosis Anisocytosis Microcytosis Macrocytosis Spherocytes Pappenheimer Bodies Sickle Cells Target Cells Tear Drop Cells Ovalocytes Helmet Cells [place] Bodies [place] Rings [place] Cells Bite Cells Crenated Cell Elliptocytes Acanthocytes (Spur) Rouleaux Hemoglobin C Crystals Schistocytes Malaria parasites Aly Bodies Hem Pathologist Commnt Sodium Potassium Chloride Carbon Dioxide Anion Gap BUN Creatinine Estimated GFR BUN/Creatinine Ratio Glucose Calcium Urine Color Yellow Urine Turbidity Clear Urine pH 5.0 Ur Specific [place] 1.019 Urine Protein 30 mg/dl Urine Glucose (UA) Neg Urine Ketones Tr Urine Blood Neg Urine Nitrite Neg Ur Reducing Substances Not Reportable Urine Bilirubin Neg Urine Ictotest Not Reportable Urine Urobilinogen 4.0 Ur Leukocyte Esterase Neg Urine WBC (Auto) 3.0 Urine RBC (Auto) 1.0 U Epithel Cells (Auto) < 1.0 Urine Mucus Few Salicylates < 0.3 L Urine Opiates Screen Presumptive negative Urine Methadone Screen Presumptive negative Acetaminophen Ur Barbiturates Screen Presumptive negative Ur Phencyclidine Scrn Presumptive negative Ur Amphetamines Screen Presumptive negative U Benzodiazepines Scrn Presumptive negative Urine Cocaine Screen Presumptive negative U Marijuana (THC) Screen Presumptive negative Drugs of Abuse Note Disclamer Plasma/Serum Alcohol 01/31/21 01/31/21 01/31/21 23:06 23:06 23:06 WBC RBC Hgb Hct MCV MCH MCHC RDW Plt Count [place] % (Auto) Add Manual Diff Total Counted Seg Neuts % (Manual) Lymphocytes % (Manual) Monocytes % (Manual) Basophils % (Manual) Nucleated RBC % Seg Neutrophils # Man Band Neutrophils # Lymphocytes # (Manual) Abs React Lymphs (Man) Monocytes # (Manual) Eosinophils # (Manual) Basophils # (Manual) Metamyelocytes # Myelocytes # Promyelocytes # Blast Cells # WBC Morphology Hypersegmented Neuts Hyposegmented Neuts Hypogranular Neuts Smudge Cells Toxic Granulation Toxic Vacuolation Dohle Bodies Pelger-Huet Anomaly Johnny Rods Platelet Estimate Clumped Platelets Plt Clumps, EDTA Large Platelets Giant Platelets Platelet Satelliting Plt Morphology Comment RBC Morphology Dimorphic RBCs Polychromasia Hypochromasia Poikilocytosis Anisocytosis Microcytosis Macrocytosis Spherocytes Pappenheimer Bodies Sickle Cells Target Cells Tear Drop Cells Ovalocytes Helmet Cells [place] Bodies [place] Rings Robert Cells Bite Cells Crenated Cell Elliptocytes Acanthocytes (Spur) Rouleaux Hemoglobin C Crystals Schistocytes Malaria parasites Aly Bodies Hem Pathologist Commnt Sodium 140 Potassium 3.6 Chloride 100.7 Carbon Dioxide 24 Anion Gap 19 BUN 7 L Creatinine 0.8 Estimated GFR > 60 BUN/Creatinine Ratio 9 Glucose 107 H Calcium 9.4 Urine Color Urine Turbidity Urine pH Ur Specific [place] Urine Protein Urine Glucose (UA) Urine Ketones Urine Blood Urine Nitrite Ur Reducing Substances Urine Bilirubin Urine Ictotest Urine Urobilinogen Ur Leukocyte Esterase Urine WBC (Auto) Urine RBC (Auto) U Epithel Cells (Auto) Urine Mucus Salicylates Urine Opiates Screen Urine Methadone Screen Acetaminophen 5.0 L Ur Barbiturates Screen Ur Phencyclidine Scrn Ur Amphetamines Screen U Benzodiazepines Scrn Urine Cocaine Screen U Marijuana (THC) Screen Drugs of Abuse Note Plasma/Serum Alcohol < 0.01 01/31/21 23:06 WBC 5.0 RBC 4.17 Hgb 14.4 Hct 42.3 MCV 101 H MCH 35 H MCHC 34 RDW 12.5 L Plt Count 213 [place] % (Auto) Sales Service Professional Add Manual Diff Complete Total Counted 100 Seg Neuts % (Manual) 73.0 H Lymphocytes % (Manual) 9.0 L Monocytes % (Manual) 17.0 H Basophils % (Manual) 1.0 Nucleated RBC % Not Reportable Seg Neutrophils # Man 3.7 Band Neutrophils # 0.0 Lymphocytes # (Manual) 0.5 L Abs React Lymphs (Man) 0.0 Monocytes # (Manual) 0.9 H Eosinophils # (Manual) 0.0 Basophils # (Manual) 0.1 Metamyelocytes # 0.0 Myelocytes # 0.0 Promyelocytes # 0.0 Blast Cells # 0.0 WBC Morphology Not Reportable Hypersegmented Neuts Not Reportable Hyposegmented Neuts Not Reportable Hypogranular Neuts Not Reportable Smudge Cells Not Reportable Toxic Granulation Not Reportable Toxic Vacuolation Not Reportable Dohle Bodies Not Reportable Pelger-Huet Anomaly Not Reportable Johnny Rods Not Reportable Platelet Estimate Consistent w auto Clumped Platelets Not Reportable Plt Clumps, EDTA Not Reportable Large Platelets Few Giant Platelets Not Reportable Platelet Satelliting Not Reportable Plt Morphology Comment Not Reportable RBC Morphology Normal Dimorphic RBCs Not Reportable Polychromasia Not Reportable Hypochromasia Not Reportable Poikilocytosis Not Reportable Anisocytosis Not Reportable Microcytosis Not Reportable Macrocytosis Not Reportable Spherocytes Not Reportable Pappenheimer Bodies Not Reportable Sickle Cells Not Reportable Target Cells Not Reportable Tear Drop Cells Not Reportable Ovalocytes Not Reportable Helmet Cells Not Reportable [place] Bodies Not Reportable [place] Rings Not Reportable Robert Cells Not Reportable Bite Cells Not Reportable Crenated Cell Not Reportable Elliptocytes Not Reportable Acanthocytes (Spur) Not Reportable Rouleaux Not Reportable Hemoglobin C Crystals Not Reportable Schistocytes Not Reportable Malaria parasites Not Reportable Aly Bodies Not Reportable Hem Pathologist Commnt No Sodium Potassium Chloride Carbon Dioxide Anion Gap BUN Creatinine Estimated GFR BUN/Creatinine Ratio Glucose Calcium Urine Color Urine Turbidity Urine pH Ur Specific [place] Urine Protein Urine Glucose (UA) Urine Ketones Urine Blood Urine Nitrite Ur Reducing Substances Urine Bilirubin Urine Ictotest Urine Urobilinogen Ur Leukocyte Esterase Urine WBC (Auto) Urine RBC (Auto) U Epithel Cells (Auto) Urine Mucus Salicylates Urine Opiates Screen Urine Methadone Screen Acetaminophen Ur Barbiturates Screen Ur Phencyclidine Scrn Ur Amphetamines Screen U Benzodiazepines Scrn Urine Cocaine Screen U Marijuana (THC) Screen Drugs of Abuse Note Plasma/Serum Alcohol - Radiology Data Radiology results: report reviewed (CT head), image reviewed (CT head) [facility] [address] [place] [address] Cat Scan Report Signed Patient: JAME WHEELER III MR#: [id number] : 1985 Acct:[id number] Age/Sex: 35 / M ADM Date: 01/31/21 Loc: ED Attending Dr: Ordering Physician: KEN MANUEL MD Date of Service: 01/31/21 P rocedure(s): CT head/brain wo con Accession Number(s): [id number] cc: KEN MANUEL MD CT head without contrast INDICATION : Visual hallucinations. Altered mental status TECHNIQUE: Axial imaging performed from the skull apex through the skull base without the use of contrast. All CT examinations performed at this facility utilize dose modulation, iterative rec onstruction or weight-based dosing, when appropriate, to reduce radiation dose to as low as reasonably achievable. COMPARISON: None FINDINGS: No acute intracranial hemorrhage or parenchymal abnormality. Ventricles are normal in size and appear symmetric. Soft tissues including the orbits appear normal. No acute osseous abnormality. Sinuses and mastoid air cells are clear. IMPRESSION: No acute abnormality. Signer Name: Chase Cox MD Signed: 02/01/2021 1:54 AM Workstation Name: [id number] Transcribed By: BC Dictated By: Chase Cox MD Electronically Authenticated By: Chase Cox MD Signed Date/Time: 02/01/21153 DD/ 1 TD/TT: Print Cancel - Differential Diagnosis Alcohol withdrawal, new onset psychosis, electrolyte abnormality <KEN MANUEL - Last Filed: 02/01/21 05:32> - Lab Data Result diagrams: 01/31/21 23:06 01/31/21 23:06 - Medical Decision Making Patient is medically clear for psychiatric care. Patient was evaluated by psychiatric team. [facility] protocol initiated. I evaluated patient. Patient had visual hallucinations on yesterday. He saw people which he knew were not present. He denies history of mental illness. He drinks alcohol daily. He does admits to having the "shakes". He does have tremors in headaches when he does not have a drink. His last drink alcohol was on Friday. Patient is lucid. He is alert noted x4. He does not have tremor. He denies suicidal homicidal ideation. He desires "detox medicine" in order to avoid alcohol withdrawal. Mental health skin care therapist provided outpatient resources for detox programs. He is discharged home. Clinical impression: Alcohol withdrawal <MICHAELA STAPLES - Last Filed: 02/01/21 15:38> Critical care attestation.: If time is entered above; I have spent that time in minutes in the direct care of this critically ill patient, excluding procedure time. <KEN MANUEL - Last Filed: 02/01/21 05:32> Critical care attestation.: If time is entered above; I have spent that time in minutes in the direct care of this critically ill patient, excluding procedure time. <MICHAELA STAPLES - Last Filed: 02/01/21 15:38> ED Disposition <KEN MANUEL - Last Filed: 02/01/21 05:32> Is pt being admited?: No Does the pt Need Aspirin: No <MICHAELA STAPLES - Last Filed: 02/01/21 15:38> Clinical Impression: Acute psychosis, Alcohol withdrawal, Alcohol dependence Disposition: DC-01 TO HOME OR SELFCARE Condition: Stable Instructions: Alcohol Withdrawal Syndrome Additional Instructions: In case of an emergency, please contact the following numbers: [place] Crisis and Access Line: Number: Crisis Text Line: (Text START) Number: [phone] Suicide Prevention Line: Number: Emergency Number: 911 SUBSTANCE ABUSE PROGRAMS: Sober Living [facility]: Location: [place], [place] [facility] Address: [address] [place] [address] [facility]: Address: [address] [place] [address] [facility]: Address: [address] [place] [address] [facility]: Address: [address] [place] [address] [facility] Address: [address] [place] [address]. Prescriptions: chlordiazePOXIDE [Librium] 25 mg PO Q6H #20 capsule Referrals: PRIMARY CARE, [Primary Care Provider] - 3-5 Days
[2021-01-31 23:20] LABS: Hematocrit 42.3 % (35.5-45.6); Hemoglobin 14.4 gm/dl (11.8-15.2); Mean Corpuscular HGB Conc 34 % (32-34); Mean Corpuscular Volume 101 fl (84-94); Platelet Count 213 K/mm3 (140-440); Red Blood Count 4.17 M/mm3 (3.65-5.03); Red Cell Distribution Width 12.5 % (13.2-15.2)
[2021-01-31 23:24] LABS: Amphetamine Screen,Urine PRESUMPTIVE NEGATIVE; Benzodiazepines Screen,Urine PRESUMPTIVE NEGATIVE; Cannabinoid Screen,Urine PRESUMPTIVE NEGATIVE; Cocaine Screen,Urine PRESUMPTIVE NEGATIVE; Methadone Screen,Urine PRESUMPTIVE NEGATIVE; Opiate Screen,Urine PRESUMPTIVE NEGATIVE
[2021-01-31 23:27] LABS: Bilirubin,Urine NEG (Negative); Blood,Urine NEG (Negative); Color,Urine Yellow (Yellow); Mucus,Urine FEW /HPF
[2021-01-31 23:37] LABS: BUN/Creatinine Ratio 9; Blood Urea Nitrogen 7 mg/dL (9-20); Calcium 9.4 mg/dL (8.4-10.2); Hemolysis Index 17
[2021-01-31] MEDS ORDERED: THIAMINE 100 MG, FOLIC ACID 1 MG, MULTIPLE VITAMIN INJ, ADULT 10 ML in SODIUM CHLORIDE ... IV ONE (23:48)
[2021-02-01 00:57] LABS: Total Cells Counted 100
[2021-02-01 00:58] LABS: Large Platelets Few; Platelet Estimate Consistent w Auto; RBC Morphology Normal
[2021-02-01] MEDS ORDERED: MAGNESIUM SULFATE 2 GM/50 ML BAG IV ONE (01:25)
[2021-02-01] MEDS: LORazepam 2 MG/ML VIAL IV PRN ×3 (01:53→06:07)
--- NOTE | 2021-02-01 01:59 | Cat Scan Report ---
CT head without contrast INDICATION : Visual hallucinations. Altered mental status TECHNIQUE: Axial imaging performed from the skull apex through the skull base without the use of con trast. All CT examinations performed at this facility utilize dose modulation, iterative reconstruct ion or weight-based dosing, when appropriate, to reduce radiation dose to as low as reasonably achiev able. COMPARISON: None FINDINGS: No acute intracranial hemorrhage or parenchymal abnormality. Ventricles are normal in si ze and appear symmetric. Soft tissues including the orbits appear normal. No acute osseous abnorm ality. Sinuses and mastoid air cells are clear. IMPRESSION: No acute abnormality. Signer Name: Chase Cox MD Signed: 02/01/2021 1:54 AM Workstation Name: [id number]
[2021-02-01 07:56] VITALS: BP 132/94
--- NOTE | 2021-02-01 14:29 | Consultation ---
History of Present Illness - Reason for Consult Consult date: 02/01/21 Reason for consult: Anxiety - History of Present Psychiatric Illness Per ED Note: The patient is a 35-year-old male present with a chief complaint of visual hallucinations. Patient states he drinks beer frequently going through approximately 312 ounce beers a day. Patient states he last consumed beer (2) earlier in the morning on 02/27/2021. The patient states later the evening he began having visual hallucinations seeing things such as a bright light behind him and things becoming animated in the room. Patient states he sees rabbits hopping around in the room. Patient denies auditory hallucinations, patient denies suicidal homicidal ideation. Cuco Stephen is a 35 year old male with a history of Alcohol use disorder who presents to the ED with complaints of visual hallucinations. In my interview with patient, he is paranoid and hyperverbal. He reports seeing individuals in his house " they go every where I go, I took a picture of them and it did not show up; complete strangers keep popping up, I know I'm not crazy." Patient reports he started consuming alcohol at age 14, he states longest periods of sobriety as 2 months. He reports having multiple inpatient alcohol detoxification. Patient endorses anxiety. Patient denies any current suic idal/homicidal ideation and denies auditory hallucinations. PAST PSYCHIATRIC HISTORY: Diagnoses: Alcohol use disorder Suicide attempts or Self-harm behavior: Denies Prior psychiatric hospitalizations: Multiple for Detox Substance Abuse history: Alcohol Previous psychiatric medications tried: Denied Outpatient treatment: Denied PAST MEDICAL HISTORY: n/a Family Psychiatric History: None reported or documented SOCIAL HISTORY Marital Status: Living Arrangements: Lives with mom Employment Status: unemployed Access to guns/weapons: n/a Education: [employer] History of Abuse: n/a Legal History: n/a REVIEW OF SYSTEMS Constitutional: Negative for weight loss ENT: Negative for stridor Respiratory: Negative for cough or hemoptysis All other systems reviewed and are negative MENTAL STATUS EXAMINATION General Appearance and Behavior: Age appropriate, good hygiene, wearing appropriate clothes, uncooperative polite with questioning. Cooperation: cooperative Psychomotor Behavior: Psychomotor agitation Mood: Anxious Affect and affective range: congruent to stated mood Thought Process:Disorganized Thought Content: Paranoid Speech: Normal volume, Regular rate and rhythm Intellectual Functioning: Average Suicidal Ideation: Denied Homicidal Ideation: Denied hallucination: Visual Impulse Control:Abnormal Insight and Judgment: limited Memory: Intact Attention:Distractible Orientation: Alert and oriented Diagnoses:Alcohol use Disorder, Severe F10.20 Current Visit: Yes Status: Acute RECOMMENDATIONS Continue CIWA protocol. Risks, benefits and alternatives of medications discussed with the patient, questions answered and consent obtained from patient. PSYCHOTHERAPY: Supportive psychotherapy provided. MEDICAL: Per primary team DELIRIUM PRECAUTIONS: Please re-orient patient frequently, keep lights on during the day, and minimize benzodiazepines and opiates as these medications could worsen patient's confusion. 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 FOLLOW-UP: Will follow Thank you for the consult. Please contact with any questions and/or concerns. Medications and Allergies Allergies Allergy/AdvReac Type Severity Reaction Status Date / Time No Known Allergies Allergy Verified 04/10/14 16:28 Home Medications Medication Instructions Recorded Confirmed Last Taken Type amLODIPine [Norvasc] 5 mg PO DAILY #30 tab 08/13/15 Unknown Rx Amlodipine Besylate [Norvasc] 5 mg PO QDAY #30 tablet 10/01/19 Unknown Rx Multivitamin with Folic Acid [Cvs 400 mcg PO QDAY #30 tablet 10/01/19 Unknown Rx One Daily Essential Tablet] chlordiazePOXIDE [Librium] 25 mg PO Q6H PRN #25 capsule 10/01/19 Unknown Rx amLODIPine [Norvasc] 5 mg PO DAILY #30 tab 04/01/20 Unknown Rx chlordiazePOXIDE [Librium] 25 mg PO Q6H #20 capsule 04/01/20 Unknown Rx Active Meds: Active Medications Lorazepam (Lorazepam 2 Mg/Ml Vial) 2 mg IV Q1HR PRN PRN Reason: CIWA-Ar 8-15 Last Admin: 02/01/21 03:57 Dose: 2 mg Documented by: Lorazepam (Lorazepam 2 Mg/Ml Vial) 4 mg IV Q1HR PRN PRN Reason: CIWA-Ar 16-25 Last Admin: 02/01/21 06:07 Dose: 4 mg Documented by: Lorazepam (Lorazepam 2 Mg/Ml Vial) 4 mg IV Q15MIN PRN PRN Reason: CIWA-Ar >25 Mental Status Exam - Vital signs Last Vital Signs Temp 99.0 F 01/31/21 22:34 Pulse 95 H 02/01/21 07:31 Resp 19 07/01/21 07:31 BP 132/94 02/01/21 07:31 Pulse Ox 99 02/01/21 07:31 Results Result Diagrams: 01/31/21 23:06 01/31/21 23:06 Abnormal lab results 01/31/21 01/31/21 01/31/21 Range/Units 23:06 23:06 23:06 MCV (84-94) fl MCH (28-32) pg RDW (13.2-15.2) % Seg Neuts % (Manual) (40.0-70.0) % Lymphocytes % (Manual) (13.4-35.0) % Monocytes % (Manual) (0.0-7.3) % Lymphocytes # (Manual) (1.2-5.4) K/mm3 Monocytes # (Manual) (0.0-0.8) K/mm3 BUN 7 L (9-20) mg/dL Glucose 107 H (75-100) mg/dL Salicylates < 0.3 L (2.8-20.0) mg/dL Acetaminophen 5.0 L (10.0-30.0) ug/mL 01/31/21 Range/Units 23:06 MCV 101 H (84-94) fl MCH 35 H (28-32) pg RDW 12.5 L (13.2-15.2) % Seg Neuts % (Manual) 73.0 H (40.0-70.0) % Lymphocytes % (Manual) 9.0 L (13.4-35.0) % Monocytes % (Manual) 17.0 H (0.0-7.3) % Lymphocytes # (Manual) 0.5 L (1.2-5.4) K/mm3 Monocytes # (Manual) 0.9 H (0.0-0.8) K/mm3 BUN (9-20) mg/dL Glucose (75-100) mg/dL Salicylates (2.8-20.0) mg/dL Acetaminophen (10.0-30.0) ug/mL All other labs normal.
[2021-02-01] MEDS ORDERED: LORazepam 1 MG TAB PO ONE (15:42)
== END 2021-02-01 16:00 | disposition home or self-care (01) ==
LOC: EEVIPCON 22:17 → ED 22:17
DX: F23 Brief psychotic disorder (principal); F10.239 Alcohol dependence with withdrawal, unspecified; I10 Essential (primary) hypertension; Z79.899 Other long term (current) drug therapy
CPT/HCPCS: 36415; 70450; 80048; 80307; 81001; 85007; 85025; 96365; 96366; 96368; 96375; 96376; 99285; J2060; J3411; J3475; J7030; 80320; G0480